=== PATIENT | male | born 1990 | race Caucasian/White ===

== ENCOUNTER 2024-01-24 11:57 | Emergency (ER) | payer OTHER, SELFPAY ==
[2024-01-24 11:58] VITALS: BP 119/79
--- NOTE | 2024-01-24 12:20 | ED.GENMED ---
History of Present Illness
General
Chief Complaint: Skin Problem
Source: patient
Exam Limitations: none
Time Seen by Provider: 01/24/24 12:03
Travel History
Have you had any contact with someone who has COVID-19?: No
Do you have any symptoms of coronavirus? Fever > 100 degrees, chills, cough, shortness of breath, sore throat, loss of taste or smell, muscle aches, or headache?: No
History of Present Illness
History of Present Illness:
See MDM
Past History
Past History
ED Past Medical History: None
ED Past Surgical History: None
Social History
Tobacco: Non-smoker
Alcohol: None
Phy Exam
Physical Exam
Physical Exam:
See MDM
Course
Orders/Labs/Results
Orders:
Orders
01/24/24 12:18
Oxycodone/Acetaminophen [Percocet 5/325] 1 tablet PO NOW STA
Sulfamethox./Trimethoprim Ds [Bactrim Ds 800 mg/160 mg] 1 tablet PO NOW STA
Vital Signs
Initial and Last Documented VS:
Initial Vital Signs
Temp Pulse Resp BP Pulse Ox
98.3 F 96 16 119/79 98
01/24/24 11:58 01/24/24 11:58 01/24/24 11:58 01/24/24 11:58 01/24/24 11:58
Last Documented Vital Signs
Temp Pulse Resp BP Pulse Ox
98.3 F 96 16 119/79 98
01/24/24 11:58 01/24/24 11:58 01/24/24 11:58 01/24/24 11:58 01/24/24 11:58
Procedures
Incision/Drainage/Joint Aspiration
Middle Proximal Buttock:
Anethesia: 1% Lidocaine with Epi
Preparation: cleaned with alcohol wipe
Type of procedure: incise
Nature of site: abscess
Description of abscess: greater than 3cm
Loculations broken up: No
How much fluid was obtained?: large amount
Fluid description: purulent
Treatment: left open for drainage
MDM/Problems Addressed
Differential Diagnosis Includes:
HPI and MDM Narrative:
33-year-old male presenting with a ruptured pilonidal cyst. Patient felt it open last night. Has been draining ever since. He denies fevers
On exam, patient has a pinhole opening to his pilonidal cyst. Pus is coming out. I gave him the option of incision and drainage at the bedside versus symptomatic care and follow-up with surgery. Patient opted for I&D knowing that he still had to
get surgery
Physical exam
General: Well appearing and non-toxic
HEENT: protecting airway
Neck: appears supple
CV: No evidence of cyanosis
Resp: No accessory muscle use
Abd: Non-distended
Back: Pilonidal cyst with purulent discharge and surrounding erythema
Extremities: No deformities
Neuro: alert
Psych: Normal affect
Skin: Intact
Problems Addressed including Acute and Chronic Conditions affecting care:
1. Pilonidal cyst
Acuity: acute
Prognosis: stable
Details: I&D performed. Large amount of purulent discharge was removed. Wound culture obtained. Patient started on Bactrim. Discussed follow-up with surgery
Differential Diagnosis (but not limited to): Bilateral cyst, abscess
Testing considered: Blood work
Drug therapy (if applicable): OTC meds, please see d/c instruction regarding Rx drugs
Amount and/or Complexity of Data Reviewed
Clinical info obtained from: Patient
External data reviewed: N/A
Labs I independently reviewed (but not limited to): N/A
Radiology: N/A
Pulse Ox: not hypoxic
EKG independently reviewed: N/A
Handling Tech: N/A
Critical Care: N/A
Risk of Complication:
Social Determinants of health: Good social support
Discussed with other providers: N/A
Escalation of Care includes Admit/Obs: After being observed in the Emergency Department, pt stable for discharge.
Occasional wrong word or 'sound a like' substitutions may have occurred due to the inherent limitations of voice recognition software. Read the chart carefully and recognize, using context, where substitutions have occurred.
*Critical Care Note
Total Time (30-74mins, 75-104mins- exclusive of procedures): Not Applicable
ED Attending Note
-
Portions of this chart may have been created with voice recognition software.� Occasional wrong word or��sound alike� substitutions may have occurred due to the inherent limitations of voice recognition software.
Discharge Plan
Departure
Patient Disposition: Home (Routine Discharge)
Date of Disposition: 01/24/24
Time of Disposition: 12:23
Patient with high blood pressure during this ER visit?: No
Discharge Problem:
Pilonidal cyst
Instructions: Pilonidal cyst, How to Do a Sitz Bath
Prescriptions:
New
sulfamethoxazole-trimethoprim [Bactrim DS] 800-160 mg tablet
1 tab PO BID 7 Days Qty: 14 0RF
Referrals:
Lamin Marquez MD [Active] -
Activity Restrictions/Additional Instructions:
Please return for any worsening symptoms.
You may return at any time if you have further concerns.
Please make an appointment to see the surgeon. Please take the antibiotics as prescribed.
Thank you for choosing [facility].
Interventions
Interventions:
*Risk Screen - Suicide Last Done: 01/24/24 11:58
*General Assessment Last Done: 01/24/24 11:58
*Neglect/Abuse Screening Last Done: 01/24/24 11:58
Discharge Date and Time
Print Language: TAMAZIGHT
[2024-01-24] MEDS: PERCOCET 5/325 1 TABLET PO (12:31)
[2024-01-24] MEDS: BACTRIM DS 800 MG/160 MG 1 TABLET PO (12:31)
== END 2024-01-24 12:54 | disposition home or self-care (01) ==
LOC: EMR 11:57
PROVIDERS: EMERGENCY PHYSICIAN Student in an Organized Health Care Education/Training Program
DX: L05.91 Pilonidal cyst without abscess (principal)
CPT/HCPCS: 10080; 99283; 87070; 87205

== ENCOUNTER 2025-02-16 22:30 | Emergency (ER) | payer MEDICAID, OTHER, SELFPAY ==
[2025-02-16 22:32] VITALS: BP 111/74
[2025-02-16 23:20] VITALS: BMI 23.0
--- NOTE | 2025-02-17 01:22 | ED.GENMED ---
History of Present Illness
General
Chief Complaint: Dental Problem
Source: patient
Exam Limitations: none
Time Seen by Provider: 02/17/25 00:22
Nursing documentation reviewed up to this point in time: agreed with
History of Present Illness
History of Present Illness:
34 y/o M with R dental pain/swelling x 3 days
pt has a bad tooth that has been cracked
he had left over amoxicillin which he took but ran out of
he has worsening swelling to R jaw
no relief with gabapentin
he has not had fever/chills
he doesn' tnkow if he has dental insurance
+smoker
Past History
Past History
ED Past Medical History: None
ED Past Surgical History: None
Social History
Tobacco: Non-smoker
Alcohol: None
Review of Systems
Review of Systems
Allergies reviewed?: Yes
All Other Systems: Not applicable
Phy Exam
Physical Exam
Physical Exam:
GENERAL: Alert , in no apparent distress
EYE: pupils equal and reactive
NECK: Supple
ENT: R mandibular swelling, mild
slightly tender
+ periapical abscess R 1st molar
CARDIAC: Regular rate and rhythm, no edema
LUNGS: Clear breath sounds bilaterally, no acute respiratory distress, no wheezes/rales/rhonchi, occ cough
SKIN: Warm and dry, skin intact.
PSYCH: Normal and appropriate interaction.
Course
Orders/Labs/Results
Orders:
Orders
02/17/25 01:21
Clindamycin HCl [Cleocin] 300 mg PO NOW STA
Ibuprofen [Motrin] 600 mg PO NOW STA
Vital Signs
Initial and Last Documented VS:
Initial Vital Signs
Temp Pulse Resp BP Pulse Ox
36.6 C 96 18 111/74 100
02/16/25 22:32 02/16/25 22:32 02/16/25 22:32 02/16/25 22:32 02/16/25 22:32
Last Documented Vital Signs
Temp Pulse Resp BP Pulse Ox
36.6 C 96 18 111/74 100
02/16/25 22:32 02/16/25 22:32 02/16/25 22:32 02/16/25 22:32 02/16/25 22:32
Procedures
Incision/Drainage/Joint Aspiration
Right Jaw:
Anethesia: 1% Lidocaine with Epi and other (bupivacaine)
Type of procedure: incise
Nature of site: abscess
Description of abscess: greater than 3cm
Loculations broken up: No
How much fluid was obtained?: small amount
Fluid description: purulent
Additional information:
dental abscess periapical right lower 1st molar I&D successful; dental block 3 cc lidocaine 1% with epi/2 cc bupivacaine
MDM/Problems Addressed
Differential Diagnosis Includes:
dental abscess
MDM/Problems Addressed:
34 y/o M
dental pain and swelling
known cracked tooth
has not seen a dentist recently
tried taking amoxicillin from previuos infection and did not improve
now swleling worse
+periapical abscess
mild R mandibular swelling
no trsimus
I&D successful
moderate purulent drainage
cklindamycine
tylenol/motrin
*Critical Care Note
Total Time (30-74mins, 75-104mins- exclusive of procedures): Not Applicable
ED Attending Note
-
Portions of this chart may have been created with voice recognition software.� Occasional wrong word or��sound alike� substitutions may have occurred due to the inherent limitations of voice recognition software.
Discharge Plan
Departure
Patient Disposition: Home (Routine Discharge)
Date of Disposition: 02/17/25
Time of Disposition: 02:04
Patient with high blood pressure during this ER visit?: No
Condition: Fair
Covid-19: Not Applicable
Discharge Problem:
Dental abscess
Instructions: Tooth Abscess (DC)
Prescriptions:
New
clindamycin HCl 300 mg capsule
300 mg PO TID Qty: 30 0RF
No Action
sulfamethoxazole-trimethoprim [Bactrim DS] 800-160 mg tablet
1 tab PO BID 7 Days Qty: 14 0RF
Referrals:
NONE,* [Family Provider] -
Activity Restrictions/Additional Instructions:
GARGLE WITH SALT WATER AFTER EATING
SOFT FOODS FOR A FEW DAYS
WARM COMPRESSES OR ICE ONTHE OUTSIDE OF YOUR JAW FOR PAIN
MOTRIN AND TYLENOL FOR PAIN
STOP THE AMOXICLLIN
TAKE CLINDAMYCIN 3 TIMES A DAY FOR 10 DAYS
SEE A DENTIST
RETURN FOR ANY CONCERNS
Interventions
Interventions:
*Risk Screen - Suicide Last Done: 02/16/25 22:32
*General Assessment Last Done: 02/16/25 23:20
*Neglect/Abuse Screening Last Done: 02/16/25 22:32
*ED- Fall Risk Assessment Last Done: 02/16/25 23:20
*ED COVID-19 Vaccine History Last Done: 02/16/25 23:20
Discharge Date and Time
Print Language: URDU
[2025-02-17] MEDS: MOTRIN 600 MG PO (01:34)
[2025-02-17] MEDS: CLEOCIN 300 MG PO (01:35)
== END 2025-02-17 02:34 | disposition home or self-care (01) ==
LOC: EMR 22:30
PROVIDERS: EMERGENCY PHYSICIAN Emergency Medicine
DX: K04.7 Periapical abscess without sinus (principal); K03.81 Cracked tooth
CPT/HCPCS: 41800; 99283